=== PATIENT | male | born 1970 | race Caucasian/White ===

== ENCOUNTER 2017-11-12 12:11 | Emergency (ER) | payer MEDICAID ==
[~2017-11-12] VITALS: Ht 167.6 cm; Wt 65.7 kg
[~2017-11-12 12:11] MED LIST: AMLO5TAB16 PO; IBUP-1984 PO; LEVO750T46 PO; TAMS0.4C32 PO
[2017-11-12] MEDS ORDERED: normal saline 1000ML IV soln IVB ONE (13:35)
[2017-11-12] MEDS ORDERED: acetaminophen 325mg tablet PO ONE (13:35)
[2017-11-12] MEDS ORDERED: ondansetron/PF 4mg/2ml inj IV ONE (13:35)
[2017-11-12] MEDS ORDERED: morphine 2 MG/ML inj. syringe IV ONE (13:35)
[2017-11-12 13:46] LABS: BASOPHILS # (AUTO) 0.1 X10'3 (0-0.2); BASOPHILS % (AUTO) 0.3 % (0-1); EOSINOPHILS % (AUTO) 0.1 % (0-6); HEMATOCRIT 45.1 % (42.0-52.0); HEMOGLOBIN 15.6 g/dl (14.0-17.9); LYMPHOCYTES # (AUTO) 1.7 X10'3 (1.1-4.8); LYMPHOCYTES % (AUTO) 8.7 % (21-51); MEAN CORPUSCULAR HEMOGLOBIN 32.7 PG (27.0-31.0); MEAN CORPUSCULAR HGB CONC 34.7 % (33.0-36.5); MEAN CORPUSCULAR VOLUME 94.2 FL (78-98); MEAN PLATELET VOLUME 8.8 FL (7.4-10.4); MONOCYTES # (AUTO) 0.4 X10'3 (0-0.9); MONOCYTES % (AUTO) 2.3 % (2-12); NEUTROPHILS # (AUTO) 17.1 X10'3 (1.8-7.7); NEUTROPHILS % (AUTO) 88.6 % (42-75); PLATELET COUNT 221 X10'3 (140-440); RED BLOOD COUNT 4.79 X10'6 (4.70-6.10); WHITE BLOOD COUNT 19.3 X10'3 (4.5-11.0)
[2017-11-12 13:47] LABS: CLARITY,URINE CLOUDY (Clear); COLOR,URINE BROWN (Yellow); GLUCOSE, URINE NEGATIVE (Neg); KETONES,URINE TRACE mg/dl (Neg); LEUKOCYTE ESTERASE ,URINE TRACE (Neg); OCCULT BLOOD,URINE LARGE (Neg); PH,URINE 5.5 (4.8-8.0); PROTEIN,URINE 100 mg/dl (Neg)
[2017-11-12 13:52] LABS: UA COLLECTION TYPE CLN CATCH MIDSTREAM
[2017-11-12 13:55] LABS: AMORPHOUS URATES 1+; BACTERIA,URINE NONE SEEN /HPF (Neg); MUCUS STRANDS NONE SEEN /LPF (Neg); RBC,URINE TNTC /HPF (0-2); SQUAMOUS EPITHELIAL CELL,UR NONE SEEN /LPF (FEW)
[2017-11-12 14:01] LABS: ALANINE AMINOTRANSFERASE 27 U/L (12-78); ALBUMIN 4.1 G/DL (3.4-5.0); ALBUMIN/GLOBULIN RATIO 1.2 (1.1-1.5); ALKALINE PHOSPHATASE 107 IU/L (46-116); ANION GAP 9 (8-16); ASPARTATE AMINO TRANSFERASE 17 U/L (10-37); BILIRUBIN,TOTAL 0.4 MG/DL (0.1-1.0); BLOOD UREA NITROGEN 13 MG/DL (7-18); BUN/CREATININE RATIO 12.6 (5.4-32.0); CALCIUM 9.6 MG/DL (8.5-10.1); CHLORIDE 107 MMOL/L (99-107); CREATININE 1.03 MG/DL (0.60-1.10); GLUCOSE 126 MG/DL (70-104); POTASSIUM 4.7 MMOL/L (3.5-5.1); SODIUM 144 MMOL/L (135-145); TOTAL CARBON DIOXIDE 28.2 MMOL/L (24-32); TOTAL PROTEIN 7.5 G/DL (6.4-8.2); eGFR 77 ML/MIN
[2017-11-12 15:00] VITALS: BP 134/97
[2017-11-12] MEDS ORDERED: KETO10TA2 PO (15:25)
[2017-11-12] MEDS ORDERED: HYDR-569 PO (15:25)
== END 2017-11-12 15:43 | disposition home or self-care (01) ==
LOC: ER 12:11
DX: N20.0 Calculus of kidney (principal); I10 Essential (primary) hypertension; F17.200 Nicotine dependence, unspecified, uncomplicated; F12.10 Cannabis abuse, uncomplicated; Z98.890 Other specified postprocedural states; Z88.0 Allergy status to penicillin; Z88.8 Allergy status to other drugs, medicaments and biological substances; Z79.899 Other long term (current) drug therapy; Z87.442 Personal history of urinary calculi
CPT/HCPCS: 36415; 80053; 81001; 85025; 87088; 96361; 96374; 96375; 99284; J2270; J2405

== ENCOUNTER 2019-03-15 10:24 | Emergency (ER) | payer MEDICAID, MEDICARE ==
[~2019-03-15] VITALS: Ht 165.1 cm; Wt 60.2 kg
[~2019-03-15 10:24] MED LIST changes: +HYDR-4383 PO; +KETO10TA2 PO
[2019-03-15 11:52] LABS: BASOPHILS # (AUTO) 0.1 X10'3 (0-0.2); BASOPHILS % (AUTO) 0.4 % (0-1); EOSINOPHILS % (AUTO) 0.1 % (0-6); HEMATOCRIT 51.9 % (42.0-52.0); HEMOGLOBIN 17.6 g/dl (14.0-17.9); LYMPHOCYTES # (AUTO) 1.1 X10'3 (1.1-4.8); LYMPHOCYTES % (AUTO) 5.7 % (21-51); MEAN CORPUSCULAR HEMOGLOBIN 32.4 PG (27.0-31.0); MEAN CORPUSCULAR HGB CONC 33.9 g/dL (33.0-36.5); MEAN CORPUSCULAR VOLUME 95.5 FL (78-98); MONOCYTES # (AUTO) 0.4 X10'3 (0-0.9); MONOCYTES % (AUTO) 1.9 % (2-12); NEUTROPHILS # (AUTO) 17.5 X10'3 (1.8-7.7); NEUTROPHILS % (AUTO) 91.9 % (42-75); PLATELET COUNT 309 X10'3 (140-440); RED BLOOD COUNT 5.43 X10'6 (4.70-6.10); RED CELL DISTRIBUTION WIDTH 12.6 % (11.5-14.5)
[2019-03-15 12:05] LABS: ALANINE AMINOTRANSFERASE 22 U/L (12-78); ALBUMIN 4.7 G/DL (3.4-5.0); ALBUMIN/GLOBULIN RATIO 1.4 (1.1-1.5); ALKALINE PHOSPHATASE 117 IU/L (46-116); ANION GAP 10 (8-16); ASPARTATE AMINO TRANSFERASE 11 U/L (10-37); BILIRUBIN,TOTAL 0.6 MG/DL (0.1-1.0); BLOOD UREA NITROGEN 17 MG/DL (7-18); BUN/CREATININE RATIO 14.2 (5.4-32.0); CALCIUM 9.7 MG/DL (8.5-10.1); CHLORIDE 102 MMOL/L (99-107); GLUCOSE 152 MG/DL (70-104); POTASSIUM 4.2 MMOL/L (3.5-5.1); SODIUM 137 MMOL/L (135-145); TOTAL CARBON DIOXIDE 25.3 MMOL/L (24-32); eGFR 64 ML/MIN
[2019-03-15] MEDS ORDERED: normal saline 1000ML IV soln IVB ONE (13:00)
[2019-03-15] MEDS ORDERED: ondansetron/PF 4mg/2ml inj IV ONE (13:00)
[2019-03-15] MEDS ORDERED: morphine 4 MG/ML inj SYRINge IV PRN (13:00)
[2019-03-15 13:05] LABS: PLATELET ESTIMATE NORMAL; TOTAL CELLS COUNTED 100; TOXIC GRANULATION 1+
[2019-03-15 13:07] LABS: CLARITY,URINE CLOUDY (Clear); COLOR,URINE YELLOW (Yellow); GLUCOSE, URINE NEGATIVE (Neg); KETONES,URINE 15 mg/dl (Neg); LEUKOCYTE ESTERASE ,URINE TRACE (Neg); NITRITES, URINE NEGATIVE (Neg); OCCULT BLOOD,URINE LARGE (Neg); PH,URINE 5.5 (4.8-8.0); PROTEIN,URINE 30 mg/dl (Neg); UROBILINOGEN,URINE 0.2 E.U/dL (0.2-1.0)
[2019-03-15 13:08] LABS: UA COLLECTION TYPE CLN CATCH MIDSTREAM
[2019-03-15 13:13] LABS: SQUAMOUS EPITHELIAL CELL,UR FEW /LPF (FEW)
[2019-03-15 13:14] LABS: MUCUS STRANDS MANY /LPF (Neg); RBC,URINE 50-100 /HPF (0-2)
[2019-03-15 13:15] LABS: BACTERIA,URINE FEW /HPF (Neg); CAL OXALATE CRYSTALS 1+ /HPF (NEGATIVE)
[2019-03-15 13:16] LABS: AMORPHOUS URATES 2+
[2019-03-15] MEDS ORDERED: ketorolac trometh. 30mg/ml inj. IV ONE (14:25)
[2019-03-15] MEDS ORDERED: CefTRIAXone/D5W-Rocephin 1gm 50 ML IV ONE (14:25)
[2019-03-15] MEDS ORDERED: SULF1TAB49 PO (14:29)
[2019-03-15] MEDS ORDERED: ONDA4TAB6 PO (14:29)
[2019-03-15] MEDS ORDERED: HYDR-3965 PO (14:29)
[2019-03-15 16:11] VITALS: BP 132/80
== END 2019-03-15 16:39 | disposition home or self-care (01) ==
LOC: ER 10:24
DX: N39.0 Urinary tract infection, site not specified (principal); N23 Unspecified renal colic; I10 Essential (primary) hypertension; F12.90 Cannabis use, unspecified, uncomplicated; Z98.890 Other specified postprocedural states; Z88.0 Allergy status to penicillin; Z87.442 Personal history of urinary calculi; Z88.8 Allergy status to other drugs, medicaments and biological substances; Z79.899 Other long term (current) drug therapy
CPT/HCPCS: 36415; 74176; 80053; 81001; 85025; 85610; 87088; 96365; 96375; 99284; J0696; J1885; J2270; J2405; J7030

== ENCOUNTER 2021-05-05 11:55 | Day surgery (SDC) | payer MEDICARE ==
[2021-04-30 09:32] LABS: BASOPHILS # (AUTO) 0.1 X10'3 (0-0.2); EOSINOPHILS # (AUTO) 0.3 X10'3 (0-0.9); EOSINOPHILS % (AUTO) 2.5 % (0-6); HEMATOCRIT 45.8 % (42.0-52.0); HEMOGLOBIN 15.5 g/dl (14.0-17.9); LYMPHOCYTES # (AUTO) 2.4 X10'3 (1.1-4.8); LYMPHOCYTES % (AUTO) 20.7 % (21-51); MEAN CORPUSCULAR HEMOGLOBIN 30.7 PG (27.0-31.0); MEAN CORPUSCULAR HGB CONC 33.8 g/dL (33.0-36.5); MEAN CORPUSCULAR VOLUME 91.1 FL (78-98); MEAN PLATELET VOLUME 8.9 FL (7.4-10.4); MONOCYTES # (AUTO) 0.7 X10'3 (0-0.9); MONOCYTES % (AUTO) 5.7 % (2-12); NEUTROPHILS # (AUTO) 8.1 X10'3 (1.8-7.7); NEUTROPHILS % (AUTO) 70.1 % (42-75); PLATELET COUNT 215 X10'3 (140-440); RED BLOOD COUNT 5.03 X10'6 (4.70-6.10); RED CELL DISTRIBUTION WIDTH 13.4 % (11.5-14.5); WHITE BLOOD COUNT 11.6 X10'3 (4.5-11.0)
[2021-04-30 09:50] LABS: ALBUMIN 3.8 G/DL (3.4-5.0); ANION GAP 10 (8-16); BLOOD UREA NITROGEN 10 MG/DL (7-18); BUN/CREATININE RATIO 8.9 (5.4-32.0); CALCIUM 8.4 MG/DL (8.5-10.1); CHLORIDE 109 MMOL/L (99-107); CREATININE 1.12 MG/DL (0.60-1.10); GLUCOSE 91 MG/DL (70-104); POTASSIUM 3.2 MMOL/L (3.5-5.1); SODIUM 147 MMOL/L (135-145); TOTAL CARBON DIOXIDE 28.3 MMOL/L (24-32); eGFR 69 ML/MIN
[2021-04-30 09:51] LABS: PARTIAL THROMBOPLASTIN TIME 27 SECONDS (22-32)
[~2021-05-05] VITALS: Ht 167.6 cm; Wt 67.2 kg
[2021-05-05] VITALS (11 sets, daily range): BP systolic 158–185; BP diastolic 63–99
[~2021-05-05 11:55] MED LIST changes: +ONDA4TAB6 PO
[2021-05-05] MEDS ORDERED: normal saline 1,000 ML IV SCH (12:15)
[2021-05-05] MEDS ORDERED: LORazepam 0.5 MG tablet PO PRN (12:15)
[2021-05-05] MEDS ORDERED: diphenhydrAMINE 25mg capsule PO PRN (12:15)
[2021-05-05] MEDS ORDERED: fentaNYL/PF 50MCG/1 ML 2ML syringe ONE ×2 (14:23→15:12)
[2021-05-05] MEDS ORDERED: iohexol 350MG/ML 100ml bottle IV ONE ×2 (14:23→15:12)
[2021-05-05] MEDS ORDERED: midazolam 1 mg/ML 2ml injection ONE ×2 (14:23→15:01)
[2021-05-05] MEDS ORDERED: LIDOcaine 1% (10mg/ml)w/preservative injection 20ml MDV ONE (14:23)
[2021-05-05] MEDS ORDERED: heparin 1,000 UNITS/NS 500ml 500 ML ONE (14:24)
[2021-05-05] MEDS ORDERED: ROSU20TA31 PO (14:36)
[2021-05-05] MEDS ORDERED: LISI40TA13 PO (14:36)
[2021-05-05] MEDS ORDERED: TERA2CAP4 PO (14:36)
[2021-05-05] MEDS ORDERED: PANT20TA18 PO (14:36)
[2021-05-05] MEDS ORDERED: METO-395 PO (14:36)
[2021-05-05] MEDS ORDERED: ALBU18HF2 (14:36)
[2021-05-05] MEDS ORDERED: NITR0.4T48 SL (14:36)
[2021-05-05] MEDS ORDERED: ASPI-611 PO (14:37)
[2021-05-05] MEDS ORDERED: nitroGLYCERIN-Tridil 50MG/D5W 250 ML IV ONE (14:37)
[2021-05-05] MEDS ORDERED: verapamil 2.5 mg/ml inj IV ONE (14:37)
[2021-05-05] MEDS ORDERED: heparin 1,000unit/ml 10ml vial 10 ML ONE (14:37)
[2021-05-05] MEDS ORDERED: proCHLORperazine 10 MG/2 ml inj IV PRN ×2 (16:00→16:25)
[2021-05-05] MEDS ORDERED: HYDROcodone/acetaminophen 5mg/325mg tablet PO PRN ×2 (16:00→16:25)
[2021-05-05] MEDS ORDERED: HYDROcodone/acetaminophen 10/325mg tab PO PRN ×2 (16:00→16:25)
[2021-05-05] MEDS ORDERED: OXAZEpam 15mg capsule PO PRN (16:00)
[2021-05-05] MEDS ORDERED: ondansetron/PF 4mg/2ml inj IV PRN ×2 (16:00→16:20)
== END 2021-05-05 18:55 | disposition home or self-care (01) ==
LOC: SSTAY O 11:55
PROVIDERS: ATTEND Internal Medicine Interventional Cardiology
DX: R94.39 Abnormal result of other cardiovascular function study (principal); R07.89 Other chest pain; I25.10 Atherosclerotic heart disease of native coronary artery without angina pectoris; I10 Essential (primary) hypertension; I05.8 Other rheumatic mitral valve diseases; E78.5 Hyperlipidemia, unspecified; Z79.01 Long term (current) use of anticoagulants; Z79.899 Other long term (current) drug therapy; Z79.82 Long term (current) use of aspirin; Z88.8 Allergy status to other drugs, medicaments and biological substances; Z88.0 Allergy status to penicillin; F17.210 Nicotine dependence, cigarettes, uncomplicated
CPT/HCPCS: 36415; 80048; 85025; 85610; 85730; 93005; 93458; 99152; 99153; C1751; C1760; C1769; C1894; J1644; J2001; J2250; J3010; J7030; Q0163; Q9967; A4620; J3490

== ENCOUNTER 2022-07-12 11:14 | Inpatient (IN) | payer MEDICARE ==
[~2022-07-12] VITALS: Ht 167.6 cm; Wt 61.0 kg
[~2022-07-12 11:14] MED LIST changes: +ALBU18HF2 PO; -AMLO5TAB16 PO; +ASPI-611 PO; +ATOR40TA71 PO; -HYDR-4383 PO; -IBUP-1984 PO; -KETO10TA2 PO; -LEVO750T46 PO; +LISI40TA13 PO; +METO-395 PO; -ONDA4TAB6 PO; +PANT20TA18 PO; -TAMS0.4C32 PO; +TERA2CAP4 PO
[2022-07-12 12:36] LABS: BASOPHILS # (AUTO) 0.1 X10'3 (0-0.2); BASOPHILS % (AUTO) 0.7 % (0-1); EOSINOPHILS % (AUTO) 0.1 % (0-6); HEMATOCRIT 43.5 % (42.0-52.0); HEMOGLOBIN 14.4 g/dl (14.0-17.9); LYMPHOCYTES # (AUTO) 1.6 X10'3 (1.1-4.8); LYMPHOCYTES % (AUTO) 8.7 % (21-51); MEAN CORPUSCULAR HEMOGLOBIN 30.6 PG (27.0-31.0); MEAN CORPUSCULAR HGB CONC 33.2 g/dL (33.0-36.5); MEAN CORPUSCULAR VOLUME 92.3 FL (78-98); MEAN PLATELET VOLUME 7.2 FL (7.4-10.4); MONOCYTES # (AUTO) 1.5 X10'3 (0-0.9); MONOCYTES % (AUTO) 7.9 % (2-12); NEUTROPHILS # (AUTO) 15.6 X10'3 (1.8-7.7); NEUTROPHILS % (AUTO) 82.6 % (42-75); PLATELET COUNT 451 X10'3 (140-440); RED BLOOD COUNT 4.71 X10'6 (4.70-6.10); WHITE BLOOD COUNT 18.9 X10'3 (4.5-11.0)
[2022-07-12 12:45] LABS: ALANINE AMINOTRANSFERASE 32 U/L (12-78); ALBUMIN 3.5 G/DL (3.4-5.0); ALBUMIN/GLOBULIN RATIO 0.8 (1.1-1.5); ALKALINE PHOSPHATASE 172 IU/L (46-116); ANION GAP 15 (8-16); ASPARTATE AMINO TRANSFERASE 18 U/L (10-37); BILIRUBIN,TOTAL 0.6 MG/DL (0.1-1.0); BLOOD UREA NITROGEN 10 MG/DL (7-18); BUN/CREATININE RATIO 12.3 (5.4-32.0); CHLORIDE 101 MMOL/L (99-107); CREATININE 0.81 MG/DL (0.60-1.10); GLUCOSE 115 MG/DL (70-104); POTASSIUM 3.4 MMOL/L (3.5-5.1); SODIUM 140 MMOL/L (135-145); TOTAL CARBON DIOXIDE 23.6 MMOL/L (24-32); eGFR > 90 ML/MIN
--- NOTE | 2022-07-12 14:27 | NUR ---
pt amb with walker to triage for reevaluation, still no output in colostomy, no air in bag, redressed wound as dressing was falling off, minimal amount of discharge from wound, pt tolerated well, waiting for ER bed
[2022-07-12] MEDS ORDERED: vancomycin 1,000mg inj IV ONE (17:30)
[2022-07-12] MEDS ORDERED: vancomycin/NS 1 GM ADD-VANTAGE 250 ML X 1 DOSE IV ONE (17:35)
[2022-07-12] MEDS ORDERED: iohexol 300mg/ml 100ml inj. ONE (17:37)
[2022-07-12] MEDS ORDERED: CefTRIAXone/D5W-Rocephin 1gm 50 ML IV ONE (19:00)
[2022-07-12] MEDS ORDERED: morphine 4 MG/ML inj SYRINge IV ONE (19:00)
[2022-07-12] MEDS ORDERED: ringers solution, lactated 500ml IV solution IV ONE (19:00)
[2022-07-12 20:03] LABS: CLARITY,URINE CLEAR (Clear); COLOR,URINE YELLOW (Yellow); GLUCOSE, URINE NEGATIVE (Neg); KETONES,URINE 40 mg/dl (Neg); LEUKOCYTE ESTERASE ,URINE NEGATIVE (Neg); NITRITES, URINE NEGATIVE (Neg); OCCULT BLOOD,URINE MODERATE (Neg); PH,URINE 6.5 (4.8-8.0); PROTEIN,URINE TRACE mg/dl (Neg); UROBILINOGEN,URINE 0.2 E.U/dL (0.2-1.0)
[2022-07-12 20:05] LABS: UA COLLECTION TYPE URINAL
[2022-07-12 20:11] LABS: HYALINE CASTS 0-3 /LPF (NEGATIVE); MUCUS STRANDS MANY /LPF (Neg); SQUAMOUS EPITHELIAL CELL,UR FEW /LPF (FEW)
[2022-07-12 20:14] LABS: BACTERIA,URINE FEW /HPF (Neg); CAL OXALATE CRYSTALS 4+ /HPF (NEGATIVE)
[2022-07-12 20:15] LABS: RBC,URINE TNTC /HPF (0-2)
[2022-07-12] MEDS ORDERED: temazepam 15mg capsule PO PRN (21:00)
[2022-07-12] MEDS ORDERED: acetaminophen 325mg tablet PO PRN ×2 (22:50)
[2022-07-12] MEDS ORDERED: bisacodyl 10mg suppository rectal RC PRN (22:50)
[2022-07-12] MEDS ORDERED: potassium Cl 20 mEq SR tablet PO PRN (22:50)
[2022-07-12] MEDS ORDERED: magnesium hydroxide 30ml (MOM) UD suspension PO PRN (22:50)
[2022-07-12] MEDS ORDERED: HYDROcodone/acetaminophen 5mg/325mg tablet PO PRN (22:50)
[2022-07-12] MEDS ORDERED: HYDROmorphone inj. 0.5 MG/0.5 ML DISP.SYRIN IV PRN (22:50)
[2022-07-12] MEDS ORDERED: diphenhydrAMINE 25mg capsule PO PRN (22:50)
[2022-07-12] MEDS ORDERED: acetaminophen 650mg rectal suppository RC PRN (22:50)
[2022-07-12] MEDS ORDERED: magnesium 4gm in 100ml NS 100 ML IV PRN (22:50)
[2022-07-12] MEDS ORDERED: diphenhydrAMINE 50 mg/ml inj IV PRN (22:50)
[2022-07-12] MEDS ORDERED: magnesium 2GM in 50ml NS 50 ML IV PRN (22:50)
[2022-07-12] MEDS ORDERED: vancomycin/NS 1 GM ADD-VANTAGE 250 ML IV SCH (22:50)
[2022-07-12] MEDS ORDERED: morphine 2 MG/ML inj. syringe IV PRN (22:50)
[2022-07-12] MEDS ORDERED: magnesium Cl slow-release 64mg tablet PO PRN (22:50)
[2022-07-12] MEDS ORDERED: mag hydrox/Alum hydrox/simeth 30ml oral suspension PO PRN (22:50)
[2022-07-12] MEDS ORDERED: METO25TA6 PO (23:33)
[2022-07-12] MEDS ORDERED: SULF1TAB45 PO (23:33)
[2022-07-12] MEDS ORDERED: LISI2.5T14 PO (23:33)
[2022-07-12 23:36] LABS: APTT 29 SECONDS (22-32)
[2022-07-12] MEDS: morphine 2 MG/ML inj. syringe IV PRN (23:36)
[2022-07-12] MEDS ORDERED: HYDR-3972 PO (23:47)
[2022-07-12] MEDS: dextrose 5%-1/2 normal saline 1,000 ML IV SCH (23:48)
[2022-07-12 23:50] LABS: MAGNESIUM 1.4 MG/DL (1.5-2.4); PHOSPHORUS 3.2 MG/DL (2.3-4.5)
[2022-07-12 23:55] LABS: POTASSIUM 2.9 MMOL/L (3.5-5.1)
[2022-07-13] VITALS (22 sets, daily range): BP systolic 118–154; BP diastolic 66–84
[2022-07-13] MEDS: potassium Cl 40MEQ/1/2NS 520ml 520 ML IV PRN ×2 (01:58→06:12)
[2022-07-13] MEDS: ondansetron/PF 4mg/2ml inj IV PRN (02:08)
[2022-07-13 06:51] LABS: BASOPHILS # (AUTO) 0.1 X10'3 (0-0.2); BASOPHILS % (AUTO) 0.6 % (0-1); EOSINOPHILS # (AUTO) 0.2 X10'3 (0-0.9); EOSINOPHILS % (AUTO) 1.1 % (0-6); HEMATOCRIT 37.1 % (42.0-52.0); HEMOGLOBIN 12.5 g/dl (14.0-17.9); LYMPHOCYTES # (AUTO) 1.1 X10'3 (1.1-4.8); LYMPHOCYTES % (AUTO) 7.2 % (21-51); MEAN CORPUSCULAR HEMOGLOBIN 30.9 PG (27.0-31.0); MEAN CORPUSCULAR HGB CONC 33.7 g/dL (33.0-36.5); MEAN CORPUSCULAR VOLUME 91.6 FL (78-98); MEAN PLATELET VOLUME 7.2 FL (7.4-10.4); MONOCYTES # (AUTO) 1.2 X10'3 (0-0.9); MONOCYTES % (AUTO) 7.6 % (2-12); NEUTROPHILS % (AUTO) 83.5 % (42-75); PLATELET COUNT 357 X10'3 (140-440); RED BLOOD COUNT 4.05 X10'6 (4.70-6.10); RED CELL DISTRIBUTION WIDTH 15.1 % (11.5-14.5); WHITE BLOOD COUNT 15.6 X10'3 (4.5-11.0)
[2022-07-13 07:02] LABS: ALANINE AMINOTRANSFERASE 21 U/L (12-78); ALBUMIN 2.7 G/DL (3.4-5.0); ALBUMIN/GLOBULIN RATIO 0.8 (1.1-1.5); ALKALINE PHOSPHATASE 139 IU/L (46-116); ANION GAP 9 (8-16); ASPARTATE AMINO TRANSFERASE 17 U/L (10-37); BILIRUBIN,TOTAL 0.5 MG/DL (0.1-1.0); BLOOD UREA NITROGEN 8 MG/DL (7-18); BUN/CREATININE RATIO 11.1 (5.4-32.0); CALCIUM 8.9 MG/DL (8.5-10.1); CHLORIDE 103 MMOL/L (99-107); CREATININE 0.72 MG/DL (0.60-1.10); GLUCOSE 110 MG/DL (70-104); MAGNESIUM 1.5 MG/DL (1.5-2.4); POTASSIUM 3.4 MMOL/L (3.5-5.1); SODIUM 137 MMOL/L (135-145); TOTAL CARBON DIOXIDE 24.9 MMOL/L (24-32); TOTAL PROTEIN 6.3 G/DL (6.4-8.2); eGFR > 90 ML/MIN
--- NOTE | 2022-07-13 07:30 | NUR ---
Midline abd wound has zamora foul smelling drainage that is comming from the R side of the wound. Area with cleaned and new dressing of 4x4s, abd pad, and paper tape applied.
[2022-07-13] MEDS: nicotine 21mg patch - 24 hr TD SCH (07:47)
[2022-07-13] MEDS: docusate sod 100mg capsule PO SCH ×2 (07:48→19:42)
[2022-07-13] MEDS: pantoprazole 40MG/NS 100ML BAG 100 ML IV SCH (07:48)
[2022-07-13] MEDS: morphine 2 MG/ML inj. syringe IV PRN ×2 (09:00→22:02)
[2022-07-13] MEDS: piperacillin/tazo 4.5gm/100ml 100 ML IV SCH ×2 (09:01→22:01)
[2022-07-13] MEDS: K and/or MAG REPLACEMENT MC SCH ×2 (09:41→20:00)
[2022-07-13] MEDS: dextrose 5%-1/2 normal saline 1,000 ML IV SCH ×2 (10:00→19:40)
[2022-07-13] MEDS: vancomycin/NS 1 GM ADD-VANTAGE 250 ML IV SCH ×2 (11:10→19:41)
--- NOTE | 2022-07-13 12:57 | NUR ---
Report given to LUIS ARMANDO Gonzalez on the Surgical floor. OR staff here to transport pt.
[2022-07-13] MEDS ORDERED: proCHLORperazine 10 MG/2 ml inj IV PRN (13:15)
[2022-07-13] MEDS ORDERED: morphine 4 MG/ML inj SYRINge IV PRN (13:15)
[2022-07-13] MEDS ORDERED: ondansetron/PF 4mg/2ml inj IV PRN (13:15)
[2022-07-13] MEDS ORDERED: morphine 2 MG/ML inj. syringe IV PRN (13:15)
[2022-07-13] MEDS ORDERED: meperidine/PF 25mg/ml syringe IV PRN ×3 (13:15)
[2022-07-13] MEDS ORDERED: ringers solution, lacted 1,000 ML IV SCH (13:15)
[2022-07-13] MEDS ORDERED: midazolam 1 mg/ML 2ml injection ONE (13:34)
[2022-07-13] MEDS ORDERED: ketamine 50mg/5ml syringe ONE (13:34)
[2022-07-13] MEDS ORDERED: fentaNYL/PF 50MCG/1 ML 2ML syringe ONE ×2 (13:34→13:41)
[2022-07-13] MEDS ORDERED: propofol inj 20 ML IV ONE (13:58)
--- NOTE | 2022-07-13 14:02 | NUR ---
Received from OR via [facility] BED , accompanied by Anesthesiologist DR MARINA and report given by Anesthesiolgist. PT PRESENTS WITH PIV 20G LEFT AC, ABD DRESSING CDI, VSS. Addendum: 07/13/22 at 1419 by Bonita Mc RN, RN Amended: Links added.
[2022-07-13] MEDS ORDERED: naloxone 0.4 mg/ml inj IV PRN (14:05)
--- NOTE | 2022-07-13 15:42 | NUR ---
Report called to receiving nurse ALICE DURÁN. Transferred via [facility] BY BASIA DURÁN TO ROOM 340. BED IN LOW LOCKED POSITION WITH CALL LIGHT IN REACH. Special Issues communicated to receiving nurse. Addendum: 07/13/22 at 1601 by Bonita Mc RN RN Amended: Links added.
--- NOTE | 2022-07-13 18:38 | NUR ---
Problems reprioritized. Patient report given, questions answered & plan of care reviewed with Rola DURÁN.
[2022-07-13] MEDS: ondansetron 4mg rapidly disintigrating tab PO PRN (19:41)
[2022-07-13] MEDS: HYDROcodone/acetaminophen 10/325mg tab PO PRN (19:41)
[2022-07-14 02:00] VITALS: BP 124/67
[2022-07-14] MEDS: dextrose 5%-1/2 normal saline 1,000 ML IV SCH ×3 (04:50→21:39)
[2022-07-14] MEDS: ondansetron 4mg rapidly disintigrating tab PO PRN (05:54)
[2022-07-14] MEDS: HYDROcodone/acetaminophen 10/325mg tab PO PRN ×4 (05:55→21:40)
[2022-07-14 05:57] VITALS: BP 144/77
[2022-07-14 06:00] VITALS: BP 156/80
--- NOTE | 2022-07-14 06:05 | NUR ---
Problems reprioritized. Patient report given, questions answered & plan of care reviewed with LUIS ARMANDO JENKINS.
[2022-07-14 07:25] LABS: BASOPHILS # (AUTO) 0.1 X10'3 (0-0.2); BASOPHILS % (AUTO) 0.7 % (0-1); EOSINOPHILS # (AUTO) 0.3 X10'3 (0-0.9); EOSINOPHILS % (AUTO) 2.5 % (0-6); HEMATOCRIT 37.5 % (42.0-52.0); HEMOGLOBIN 12.2 g/dl (14.0-17.9); LYMPHOCYTES # (AUTO) 1.6 X10'3 (1.1-4.8); LYMPHOCYTES % (AUTO) 14.1 % (21-51); MEAN CORPUSCULAR HGB CONC 32.7 g/dL (33.0-36.5); MEAN PLATELET VOLUME 7.2 FL (7.4-10.4); MONOCYTES # (AUTO) 1.1 X10'3 (0-0.9); MONOCYTES % (AUTO) 9.8 % (2-12); NEUTROPHILS # (AUTO) 8.3 X10'3 (1.8-7.7); NEUTROPHILS % (AUTO) 72.9 % (42-75); PLATELET COUNT 338 X10'3 (140-440); RED BLOOD COUNT 4.08 X10'6 (4.70-6.10); RED CELL DISTRIBUTION WIDTH 14.9 % (11.5-14.5); WHITE BLOOD COUNT 11.4 X10'3 (4.5-11.0)
[2022-07-14] MEDS ORDERED: VANCOMYCIN LEVEL IV ONE (07:30)
[2022-07-14 07:35] LABS: ALANINE AMINOTRANSFERASE 30 U/L (12-78); ALBUMIN 2.5 G/DL (3.4-5.0); ALBUMIN/GLOBULIN RATIO 0.7 (1.1-1.5); ALKALINE PHOSPHATASE 124 IU/L (46-116); ANION GAP 7 (8-16); ASPARTATE AMINO TRANSFERASE 30 U/L (10-37); BILIRUBIN,TOTAL 0.4 MG/DL (0.1-1.0); BLOOD UREA NITROGEN 8 MG/DL (7-18); BUN/CREATININE RATIO 9.6 (5.4-32.0); CALCIUM 8.6 MG/DL (8.5-10.1); CHLORIDE 103 MMOL/L (99-107); CREATININE 0.83 MG/DL (0.60-1.10); GLUCOSE 105 MG/DL (70-104); POTASSIUM 3.1 MMOL/L (3.5-5.1); SODIUM 137 MMOL/L (135-145); TOTAL CARBON DIOXIDE 27.2 MMOL/L (24-32); eGFR > 90 ML/MIN
[2022-07-14 07:36] LABS: MAGNESIUM 1.5 MG/DL (1.5-2.4); VANCOMYCIN,TROUGH 16.4 UG/ML (6.0-14.0)
[2022-07-14] MEDS: nicotine 21mg patch - 24 hr TD SCH ×3 (08:00→08:40)
[2022-07-14] MEDS: docusate sod 100mg capsule PO SCH ×2 (08:34→21:39)
[2022-07-14] MEDS: vancomycin/NS 1 GM ADD-VANTAGE 250 ML IV SCH ×2 (08:34→21:41)
[2022-07-14] MEDS: pantoprazole 40MG/NS 100ML BAG 100 ML IV SCH (08:34)
[2022-07-14 10:00] VITALS: BP 139/79
[2022-07-14] MEDS: piperacillin/tazo 4.5gm/100ml 100 ML IV SCH ×2 (10:21→21:42)
--- NOTE | 2022-07-14 11:24 | NUR ---
Initial: Pt admit DX HTN, hypokalemia, and abdominal wall abscess s/p I&D this admit w/ hx colostomy and abdomen surgical site wound vac per EMR. Pending initial PO and colostomy output in EMR. Pt seen by RD at bedside for written/verbal high protein diet ed w/ RD contact information provided. Pt reports good appetite, drinks premier protein 1-2/day at home, and is agreeable to strawberry Esa smoothie BIDBD for wound healing; MD notified. RD paged MD recommends MVI supplementation for wound healing if agreeable. Will monitor for PO trends and further nutrition intervention needs this admit. Rec: 1. continue regular diet per MD; encourage PO 2. strawberry Esa smoothie BIDBD for wound healing; pending MD verification in EMR 3. MVI supplementation for wound healing 4. bowel care per rx; monitor colostomy output 5. scaled wt this admit; subsequent weekly wts Addendum: 07/14/22 at [address] Amended: Links added.
[2022-07-14] MEDS: K and/or MAG REPLACEMENT MC SCH ×2 (12:07→20:00)
[2022-07-14] MEDS: potassium Cl 20 mEq SR tablet PO PRN ×2 (12:33→17:22)
[2022-07-14 18:00] VITALS: BP 153/82
--- NOTE | 2022-07-14 18:38 | NUR ---
Problems reprioritized. Patient report given, questions answered & plan of care reviewed with Janette Savage RN.
--- NOTE | 2022-07-14 18:40 | NUR ---
Patient in room [facility]. I have received report from ALICE DURÁN and had the opportunity to ask questions and assume patient care.
[2022-07-14] MEDS: JUVEN Smoothie Arginine/Glut./Ca2+Bmb (Juven 19.3pkt) 240ml cup PO SCH (19:00)
[2022-07-14 22:00] VITALS: BP 152/86
[2022-07-15] MEDS: HYDROcodone/acetaminophen 10/325mg tab PO PRN ×3 (01:46→13:28)
[2022-07-15 05:54] LABS: BASOPHILS # (AUTO) 0.1 X10'3 (0-0.2); BASOPHILS % (AUTO) 1.1 % (0-1); EOSINOPHILS # (AUTO) 0.3 X10'3 (0-0.9); EOSINOPHILS % (AUTO) 2.9 % (0-6); HEMATOCRIT 37.8 % (42.0-52.0); HEMOGLOBIN 12.5 g/dl (14.0-17.9); LYMPHOCYTES # (AUTO) 2.2 X10'3 (1.1-4.8); LYMPHOCYTES % (AUTO) 21.3 % (21-51); MEAN CORPUSCULAR HEMOGLOBIN 30.5 PG (27.0-31.0); MEAN CORPUSCULAR VOLUME 92.4 FL (78-98); MEAN PLATELET VOLUME 7.5 FL (7.4-10.4); MONOCYTES # (AUTO) 1.1 X10'3 (0-0.9); MONOCYTES % (AUTO) 10.7 % (2-12); NEUTROPHILS # (AUTO) 6.6 X10'3 (1.8-7.7); PLATELET COUNT 361 X10'3 (140-440); RED BLOOD COUNT 4.09 X10'6 (4.70-6.10); RED CELL DISTRIBUTION WIDTH 14.5 % (11.5-14.5); WHITE BLOOD COUNT 10.3 X10'3 (4.5-11.0)
[2022-07-15 06:00] VITALS: BP 144/80
[2022-07-15 06:05] LABS: ALANINE AMINOTRANSFERASE 37 U/L (12-78); ALBUMIN 2.4 G/DL (3.4-5.0); ALBUMIN/GLOBULIN RATIO 0.7 (1.1-1.5); ALKALINE PHOSPHATASE 110 IU/L (46-116); ANION GAP 10 (8-16); ASPARTATE AMINO TRANSFERASE 24 U/L (10-37); BILIRUBIN,TOTAL 0.3 MG/DL (0.1-1.0); BLOOD UREA NITROGEN 9 MG/DL (7-18); BUN/CREATININE RATIO 9.6 (5.4-32.0); CALCIUM 8.5 MG/DL (8.5-10.1); CHLORIDE 107 MMOL/L (99-107); CREATININE 0.94 MG/DL (0.60-1.10); GLUCOSE 101 MG/DL (70-104); MAGNESIUM 1.5 MG/DL (1.5-2.4); POTASSIUM 3.5 MMOL/L (3.5-5.1); SODIUM 143 MMOL/L (135-145); TOTAL CARBON DIOXIDE 26.3 MMOL/L (24-32); eGFR 84 ML/MIN
--- NOTE | 2022-07-15 06:30 | NUR ---
Patient in room [facility] 341. I have received report from Ayanna DURÁN and had the opportunity to ask questions and assume patient care.
--- NOTE | 2022-07-15 06:30 | NUR ---
Problems reprioritized. Patient report given, questions answered & plan of care reviewed with WENDY DURÁN.
[2022-07-15] MEDS: pantoprazole 40MG/NS 100ML BAG 100 ML IV SCH (07:36)
[2022-07-15] MEDS: docusate sod 100mg capsule PO SCH (07:37)
[2022-07-15] MEDS: vancomycin/NS 1 GM ADD-VANTAGE 250 ML IV SCH (07:52)
[2022-07-15] MEDS: K and/or MAG REPLACEMENT MC SCH (08:00)
[2022-07-15] MEDS: JUVEN Smoothie Arginine/Glut./Ca2+Bmb (Juven 19.3pkt) 240ml cup PO SCH ×2 (08:01→17:30)
--- NOTE | 2022-07-15 09:00 | NUR ---
Lab called to alert that abdominal abscess blood culture showed MRSA positive. MD notified.
--- NOTE | 2022-07-15 10:20 | NUR ---
Pt. educated on the importance of receiving insulin for diabetes. Pt. refused insulin this morning but was agreeable to recheck blood sugar at noon at 12:00 Addendum: 07/15/22 at 1348 by Terese Ziegler RN This note was on wrong patient please disregard.
[2022-07-15] MEDS: piperacillin/tazo 4.5gm/100ml 100 ML IV SCH (10:43)
[2022-07-15] MEDS: dextrose 5%-1/2 normal saline 1,000 ML IV SCH (10:50)
[2022-07-15 11:00] VITALS: BP 153/82
[2022-07-15] MEDS: ondansetron/PF 4mg/2ml inj IV PRN (11:03)
[2022-07-15] MEDS ORDERED: LINE600T11 PO (14:44)
[2022-07-15] MEDS ORDERED: HYDR-3972 PO (14:44)
--- NOTE | 2022-07-15 17:40 | NUR ---
IV dc, cannula intact at 1700. Pt. DC home with all personal belongings via wheelchair to private vehicle accompanied by family member and staff. DC instructions given, pt. verbalized understanding and had opportunity to ask questions.
[2022-07-16] MEDS ORDERED: pantoprazole 40mg Tablet.DR PO SCH (07:30)
== END 2022-07-15 16:50 | disposition home health service (06) | DRG 862 ==
LOC: ER 11:15 → ED HOLD 22:55 → SUR 3N 07-13 15:51
PROVIDERS: ADMIT Family Medicine; ATTEND Family Medicine
PROC: 0JD83ZZ Extraction of Abdomen Subcutaneous Tissue and Fascia, Percutaneous Approach (ICD-10-PCS; 2022-07-13)
PROC: 0W9F3ZZ Drainage of Abdominal Wall, Percutaneous Approach (ICD-10-PCS; principal; 2022-07-13 13:25)
DX: T81.41XA Infection following a procedure, superficial incisional surgical site, initial encounter (principal); A41.9 Sepsis, unspecified organism; L02.211 Cutaneous abscess of abdominal wall; N39.0 Urinary tract infection, site not specified; L03.311 Cellulitis of abdominal wall; E86.0 Dehydration; E78.5 Hyperlipidemia, unspecified; E83.42 Hypomagnesemia; E87.6 Hypokalemia; F12.10 Cannabis abuse, uncomplicated; I10 Essential (primary) hypertension; I73.9 Peripheral vascular disease, unspecified; K76.0 Fatty (change of) liver, not elsewhere classified; F17.200 Nicotine dependence, unspecified, uncomplicated; R82.4 Acetonuria; K76.89 Other specified diseases of liver; N40.0 Benign prostatic hyperplasia without lower urinary tract symptoms; Y83.8 Other surgical procedures as the cause of abnormal reaction of the patient, or of later complication, without mention of misadventure at the time of the procedure; R31.0 Gross hematuria; Z83.3 Family history of diabetes mellitus; Z87.442 Personal history of urinary calculi; Z90.49 Acquired absence of other specified parts of digestive tract; Z93.3 Colostomy status; Z88.0 Allergy status to penicillin; Z88.8 Allergy status to other drugs, medicaments and biological substances; Z82.49 Family history of ischemic heart disease and other diseases of the circulatory system; Z79.899 Other long term (current) drug therapy; Z79.82 Long term (current) use of aspirin; Z71.6 Tobacco abuse counseling; Y92.89 Other specified places as the place of occurrence of the external cause
CPT/HCPCS: 36415; 71045; 74177; 80053; 80202; 81001; 83605; 83735; 83880; 84100; 84132; 84145; 85025; 85610; 85730; 87040; 87070; 87075; 87077; 87088; 87186; 93005; 99285; A4618; A6253; A6266; A6449; A7000; C9113; G0378; J0696; J2250; J2270; J2405; J2543; J2704; J3010; J3370; J3480; J3490; J7030; J7042; J7120; J7121; Q9967

== ENCOUNTER 2022-07-30 14:30 | Emergency (ER) | payer MEDICARE ==
[~2022-07-30] VITALS: Ht 167.6 cm; Wt 59.0 kg
[~2022-07-30 14:30] MED LIST changes: +HYDR-3972 PO; +LINE600T11 PO; +LISI2.5T14 PO; -LISI40TA13 PO; -METO-395 PO; +METO25TA6 PO
[2022-07-30 15:31] LABS: BASOPHILS # (AUTO) 0.1 X10'3 (0-0.2); EOSINOPHILS % (AUTO) 0.2 % (0-6); HEMOGLOBIN 13.5 g/dl (14.0-17.9); LYMPHOCYTES # (AUTO) 1.8 X10'3 (1.1-4.8); LYMPHOCYTES % (AUTO) 16.9 % (21-51); MEAN CORPUSCULAR HEMOGLOBIN 30.6 PG (27.0-31.0); MEAN CORPUSCULAR HGB CONC 33.9 g/dL (33.0-36.5); MEAN CORPUSCULAR VOLUME 90.2 FL (78-98); MEAN PLATELET VOLUME 7.4 FL (7.4-10.4); MONOCYTES # (AUTO) 0.9 X10'3 (0-0.9); MONOCYTES % (AUTO) 8.6 % (2-12); NEUTROPHILS # (AUTO) 7.6 X10'3 (1.8-7.7); NEUTROPHILS % (AUTO) 73.3 % (42-75); PLATELET COUNT 211 X10'3 (140-440); RED BLOOD COUNT 4.43 X10'6 (4.70-6.10); RED CELL DISTRIBUTION WIDTH 14.8 % (11.5-14.5); WHITE BLOOD COUNT 10.4 X10'3 (4.5-11.0)
[2022-07-30 15:49] LABS: ALANINE AMINOTRANSFERASE 46 U/L (12-78); ALBUMIN 3.7 G/DL (3.4-5.0); ALKALINE PHOSPHATASE 113 IU/L (46-116); ANION GAP 14 (8-16); ASPARTATE AMINO TRANSFERASE 26 U/L (10-37); BILIRUBIN,TOTAL 0.5 MG/DL (0.1-1.0); BLOOD UREA NITROGEN 7 MG/DL (7-18); BUN/CREATININE RATIO 7.6 (5.4-32.0); CALCIUM 9.6 MG/DL (8.5-10.1); CHLORIDE 103 MMOL/L (99-107); CREATININE 0.92 MG/DL (0.60-1.10); GLUCOSE 117 MG/DL (70-104); LIPASE 99 U/L (73-393); SODIUM 146 MMOL/L (135-145); TOTAL CARBON DIOXIDE 28.9 MMOL/L (24-32); TOTAL PROTEIN 7.3 G/DL (6.4-8.2); eGFR 86 ML/MIN
[2022-07-30 15:51] LABS: POTASSIUM 2.9 MMOL/L (3.5-5.1)
--- NOTE | 2022-07-30 15:52 | NUR ---
Charge nurse made aware of critical lab value (K 2.9)
--- NOTE | 2022-07-30 21:30 | NUR ---
Clinical Registered Nurse agrees with Jacqueline Shearer LPN assessment
[2022-07-30 21:36] LABS: CLARITY,URINE SLIGHTLY CLOUDY (Clear); COLOR,URINE YELLOW (Yellow); GLUCOSE, URINE NEGATIVE (Neg); KETONES,URINE 15 mg/dl (Neg); LEUKOCYTE ESTERASE ,URINE NEGATIVE (Neg); NITRITES, URINE NEGATIVE (Neg); OCCULT BLOOD,URINE LARGE (Neg); PROTEIN,URINE TRACE mg/dl (Neg); UROBILINOGEN,URINE 0.2 E.U/dL (0.2-1.0)
[2022-07-30 21:45] LABS: UA COLLECTION TYPE VOIDED
[2022-07-30 21:46] LABS: AMORPHOUS PHOSPHATES 2+; BACTERIA,URINE 2+ /HPF (Neg); MUCUS STRANDS MODERATE /LPF (Neg); RBC,URINE 20-50 /HPF (0-2); SQUAMOUS EPITHELIAL CELL,UR FEW /LPF (FEW)
[2022-07-30] MEDS ORDERED: ondansetron/PF 4mg/2ml inj IV ONE (22:50)
[2022-07-30] MEDS ORDERED: morphine 4 MG/ML inj SYRINge IV ONE (22:50)
[2022-07-30] MEDS ORDERED: iohexol 300mg/ml 100ml inj. ONE (23:00)
[2022-07-31] MEDS ORDERED: ringers solution, lacted 1,000 ML IV ONE (00:40)
[2022-07-31] MEDS ORDERED: potassium Cl 10 mEq/100mL bag IV ONE (02:45)
[2022-07-31] MEDS: ondansetron/PF 4mg/2ml inj IV ONE ×2 (02:45→03:36)
[2022-07-31] MEDS ORDERED: POTASSIUM BICARB 20meq eff tab 20 MEQ TABLET.EFF PO ONE (02:45)
[2022-07-31] MEDS ORDERED: ondansetron/PF 4mg/2ml inj IV ONE (03:40)
[2022-07-31 05:34] VITALS: BP 170/92
== END 2022-07-31 06:10 | disposition home or self-care (01) ==
LOC: ER 14:30
DX: R10.84 Generalized abdominal pain (principal); E87.6 Hypokalemia; R11.2 Nausea with vomiting, unspecified; E78.00 Pure hypercholesterolemia, unspecified; I10 Essential (primary) hypertension; E11.9 Type 2 diabetes mellitus without complications; F12.90 Cannabis use, unspecified, uncomplicated; Z87.442 Personal history of urinary calculi; Z98.890 Other specified postprocedural states; Z88.0 Allergy status to penicillin; Z88.8 Allergy status to other drugs, medicaments and biological substances; Z79.82 Long term (current) use of aspirin; Z79.899 Other long term (current) drug therapy
CPT/HCPCS: 36415; 74177; 80053; 81001; 83690; 85025; 87088; 96361; 96374; 96375; 96376; 99285; J2270; J2405; J3480; J7030; J7120; Q9967

== ENCOUNTER 2022-10-08 08:48 | Outpatient (CLI) | payer MEDICARE ==
[~2022-10-08] VITALS: Ht 167.6 cm; Wt 63.5 kg
[~2022-10-08 08:48] MED LIST changes: -LINE600T11 PO
[2022-10-08] MEDS ORDERED: ONDA-103 PO (09:24)
[2022-10-08] MEDS ORDERED: LACT1CAP65 PO (09:24)
[2022-10-08] MEDS ORDERED: ESCI-8 PO (09:24)
[2022-10-08] MEDS ORDERED: HYDR-3964 PO (09:25)
[2022-10-08 10:23] LABS: BASOPHILS # (AUTO) 0.1 X10'3 (0-0.2); BASOPHILS % (AUTO) 0.6 % (0-1); EOSINOPHILS # (AUTO) 0.2 X10'3 (0-0.9); EOSINOPHILS % (AUTO) 2.1 % (0-6); LYMPHOCYTES # (AUTO) 1.3 X10'3 (1.1-4.8); LYMPHOCYTES % (AUTO) 14.1 % (21-51); MONOCYTES % (AUTO) 10.8 % (2-12); NEUTROPHILS # (AUTO) 6.8 X10'3 (1.8-7.7); NEUTROPHILS % (AUTO) 72.4 % (42-75); PRE OP HEMATOCRIT 44.5 % (42.0-52.0); PRE OP HEMOGLOBIN 14.7 g/dL (14.0-17.9); PRE OP PLATELET COUNT 174 X10'3 (140-440); RED BLOOD COUNT 4.89 X10'6 (4.70-6.10); RED CELL DISTRIBUTION WIDTH 14.7 % (11.5-14.5)
[2022-10-08 10:31] LABS: ALBUMIN 3.9 G/DL (3.4-5.0); ALBUMIN/GLOBULIN RATIO 1.3 (1.1-1.5); ALKALINE PHOSPHATASE 127 IU/L (46-116); BLOOD UREA NITROGEN 14 MG/DL (7-18); BUN/CREATININE RATIO 14.1 (5.4-32.0); CALCIUM 9.3 MG/DL (8.5-10.1); CHLORIDE 106 MMOL/L (99-107); CREATININE 0.99 MG/DL (0.60-1.10); PRE OP ALT 44 U/L (30-65); PRE OP ANION GAP 11 (8-16); PRE OP AST 26 U/L (10-37); PRE OP BILIRUB, TOTAL 0.4 MG/DL (0.0-1.0); PRE OP GLUCOSE 137 MG/DL (70-104); PRE OP SODIUM 142 MMOL/L (135-145); TOTAL CARBON DIOXIDE 25.3 MMOL/L (24-32); TOTAL PROTEIN 6.9 G/DL (6.4-8.2); eGFR 79 ML/MIN
[2022-10-08 10:50] LABS: PRE OP POTASSIUM 3.2 MMOL/L (3.4-5.1)
[2022-10-11] MEDS ORDERED: ESCI20TA39 PO (11:20)
[2022-10-11] MEDS ORDERED: METO-384 PO (11:20)
[2022-10-11] MEDS ORDERED: HYDR-3972 PO (11:20)
[2022-10-11] MEDS ORDERED: LISI40TA13 PO (11:20)
[2022-10-11] MEDS ORDERED: PANT40TA54 PO (11:20)
[2022-10-12] MEDS ORDERED: ringers solution, lacted 1,000 ML IV SCH (05:00)
[2022-10-12] MEDS ORDERED: GENTAMICIN IV ONE (05:30)
[2022-10-12] MEDS ORDERED: clindamycin-Cleocin 900mg/D5W 50 ML IV ONE (05:30)
[2022-10-12] MEDS ORDERED: famotidine 20mg tablet PO ONE (05:30)
[2022-10-12] MEDS ORDERED: NORMAL SALINE IV ONE (05:30)
[2022-10-21] MEDS ORDERED: ringers solution, lacted 1,000 ML IV SCH (05:00)
[2022-10-21] MEDS ORDERED: GENTAMICIN IV ONE (05:30)
[2022-10-21] MEDS ORDERED: NORMAL SALINE IV ONE (05:30)
[2022-10-21] MEDS ORDERED: famotidine 20mg tablet PO ONE (05:30)
[2022-10-21] MEDS ORDERED: clindamycin-Cleocin 900mg/D5W 50 ML IV ONE (05:30)
[2022-10-26] MEDS ORDERED: ringers solution, lacted 1,000 ML IV SCH (05:00)
[2022-10-26] MEDS ORDERED: famotidine 20mg tablet PO ONE (05:30)
[2022-10-26] MEDS ORDERED: GENTAMICIN IV ONE (05:30)
[2022-10-26] MEDS ORDERED: NORMAL SALINE IV ONE (05:30)
[2022-10-26] MEDS ORDERED: DOCUMENT DATE & TIME OF BETA-BLOCKER PO ONE (05:30)
[2022-10-26] MEDS ORDERED: clindamycin-Cleocin 900mg/D5W 50 ML IV ONE (05:30)
[2022-11-01] MEDS ORDERED: PANT20TA18 PO (14:01)
[2022-11-10] MEDS ORDERED: CIPR750T4 PO (14:46)
[2022-11-10] MEDS ORDERED: LOSA50TA64 PO (14:46)
[2022-11-10] MEDS ORDERED: LINE600T14 PO (14:46)
[2022-11-10] MEDS ORDERED: NOR5T PO (14:46)
[2022-11-10] MEDS ORDERED: CHLO25TA11 PO (14:46)
[2022-11-10] MEDS ORDERED: OXYC-150 PO (14:51)
== END 2022-10-08 23:59 | disposition home or self-care (01) ==
LOC: LAB 08:48 → EDSTATUS 10-26 08:30
PROVIDERS: ATTEND Surgery
DX: Z01.812 Encounter for preprocedural laboratory examination (principal); K43.2 Incisional hernia without obstruction or gangrene; Z93.3 Colostomy status
CPT/HCPCS: 36415; 80053; 85025; 86885; 86900; 86901; 87081; J1580; J3490; J7120

== ENCOUNTER 2024-03-07 08:04 | Emergency (ER) | payer MEDICARE ==
[~2024-03-07] VITALS: Ht 167.6 cm; Wt 83.0 kg
[~2024-03-07 08:04] MED LIST changes: +CHLO25TA11 PO; +CIPR750T4 PO; +ESCI20TA39 PO; +LACT1CAP65 PO; +LINE600T14 PO; -LISI2.5T14 PO; +LOSA50TA64 PO; +METO-384 PO; -METO25TA6 PO; +NOR5T PO; +ONDA-103 PO; +OXYC-150 PO
[2024-03-07] MEDS ORDERED: TERA2CAP4 PO (08:54)
[2024-03-07] MEDS ORDERED: BUPR-561 PO (08:54)
[2024-03-07] MEDS ORDERED: METO100T14 PO (08:54)
[2024-03-07 10:08] LABS: BASOPHILS # (AUTO) 0.1 X10'3 (0-0.2); BASOPHILS % (AUTO) 0.8 % (0-1); EOSINOPHILS # (AUTO) 0.2 X10'3 (0-0.9); EOSINOPHILS % (AUTO) 1.4 % (0-6); LYMPHOCYTES # (AUTO) 1.9 X10'3 (1.1-4.8); LYMPHOCYTES % (AUTO) 12.4 % (21-51); MEAN CORPUSCULAR HEMOGLOBIN 31.8 PG (27.0-31.0); MEAN CORPUSCULAR HGB CONC 33.4 g/dL (33.0-36.5); MEAN CORPUSCULAR VOLUME 95.1 FL (78-98); MEAN PLATELET VOLUME 8.2 FL (7.4-10.4); MONOCYTES # (AUTO) 1.1 X10'3 (0-0.9); MONOCYTES % (AUTO) 7.3 % (2-12); NEUTROPHILS # (AUTO) 11.9 X10'3 (1.8-7.7); NEUTROPHILS % (AUTO) 78.1 % (42-75); PLATELET COUNT 334 X10'3 (140-440); RED BLOOD COUNT 5.36 X10'6 (4.70-6.10); RED CELL DISTRIBUTION WIDTH 13.5 % (11.5-14.5); WHITE BLOOD COUNT 15.3 X10'3 (4.5-11.0)
[2024-03-07 10:35] LABS: ALBUMIN 3.4 G/DL (3.4-5.0); ANION GAP 11 (8-16); BLOOD UREA NITROGEN 12 MG/DL (7-18); BUN/CREATININE RATIO 9.4 (10.0-20.0); CALCIUM 8.9 MG/DL (8.5-10.1); CHLORIDE 104 MMOL/L (99-107); CREATININE 1.28 MG/DL (0.60-1.10); GLUCOSE 108 MG/DL (70-104); SODIUM 140 MMOL/L (135-145); TOTAL CARBON DIOXIDE 25.2 MMOL/L (24-32); eCRCL 59 ML/MIN; eGFR 58 ML/MIN
[2024-03-07 10:42] LABS: POTASSIUM 2.8 MMOL/L (3.5-5.1)
[2024-03-07] MEDS: normal saline 1000ML IV soln IVB ONE (13:23)
[2024-03-07] MEDS: morphine 4 MG/ML inj SYRINge IV ONE (13:23)
[2024-03-07] MEDS: ondansetron/PF 4mg/2ml inj IV ONE (13:24)
[2024-03-07] MEDS: vancomycin/NS 1 GM ADD-VANTAGE 250 ML IV ONE (13:25)
[2024-03-07] MEDS ORDERED: iohexol 300mg/ml 100ml inj. ONE (13:26)
[2024-03-07 14:01] VITALS: TEMP 98.2
[2024-03-07 14:38] LABS: BILIRUBIN,URINE NEGATIVE (Neg); CLARITY,URINE CLEAR (Clear); COLOR,URINE YELLOW (Yellow); GLUCOSE, URINE NEGATIVE (Neg); KETONES,URINE NEGATIVE (Neg); LEUKOCYTE ESTERASE ,URINE NEGATIVE (Neg); NITRITES, URINE NEGATIVE (Neg); OCCULT BLOOD,URINE SMALL (Neg); PROTEIN,URINE TRACE mg/dl (Neg); UROBILINOGEN,URINE 0.2 E.U/dL (0.2-1.0)
[2024-03-07 14:40] LABS: UA COLLECTION TYPE OTHER
[2024-03-07 14:44] LABS: BACTERIA,URINE 1+ /HPF (Neg); SQUAMOUS EPITHELIAL CELL,UR FEW /LPF (FEW)
[2024-03-07 14:45] LABS: MUCUS STRANDS MODERATE /LPF (Neg)
[2024-03-07] MEDS ORDERED: magnesium sulf-water 2g/50mL 50 ML IV PRN (14:55)
[2024-03-07] MEDS ORDERED: magnesium Cl slow-release 64mg tablet PO PRN (14:55)
[2024-03-07] MEDS ORDERED: potassium Cl 40MEQ/1/2NS 520ml 520 ML IV PRN (14:55)
[2024-03-07] MEDS ORDERED: magnesium sulf-water 4G/100mL 100 ML IV PRN (14:55)
[2024-03-07] MEDS ORDERED: potassium Cl 20 mEq SR tablet PO PRN ×2 (14:55)
[2024-03-07] MEDS ORDERED: metoprolol succinate 25mg (24-HOUR) SR. Tablet PO SCH (15:05)
[2024-03-07] MEDS: hydrALAZINE 20mg/ml inj. IV ONE (15:43)
[2024-03-07] MEDS: LIDOcaine 1% W/epiNEPHrine 1:100,000 20ml vial SQ ONE (15:48)
[2024-03-07] MEDS ORDERED: piperacillin/tazo 3.375gm/50ml 50 ML IV SCH (16:00)
[2024-03-07] MEDS ORDERED: CEPH-585 PO (16:58)
[2024-03-07] MEDS ORDERED: SULF1TAB48 PO (16:58)
[2024-03-07] MEDS ORDERED: POTA-205 PO (16:59)
[2024-03-07] MEDS: sulfamethoxazole/trimethoprim DS (800/160mg) tablet PO ONE (17:03)
[2024-03-07] MEDS: cephalexin 500mg capsule PO ONE (17:04)
[2024-03-07] MEDS: metoprolol succinate 25mg (24-HOUR) SR. Tablet PO ONE (17:04)
[2024-03-07] MEDS: potassium Cl 20 mEq SR tablet PO ONE (17:04)
[2024-03-07 17:51] VITALS: BP 170/98; PULSE 93; RESP 15; O2SAT 97
[2024-03-07] MEDS ORDERED: K and/or MAG REPLACEMENT MC SCH (20:00)
== END 2024-03-07 17:53 | disposition home or self-care (01) ==
LOC: ER 08:04
DX: L03.311 Cellulitis of abdominal wall (principal); I10 Essential (primary) hypertension; E78.00 Pure hypercholesterolemia, unspecified; E11.9 Type 2 diabetes mellitus without complications; F17.200 Nicotine dependence, unspecified, uncomplicated; Z88.0 Allergy status to penicillin; Z88.8 Allergy status to other drugs, medicaments and biological substances; Z79.82 Long term (current) use of aspirin; Z79.2 Long term (current) use of antibiotics; Z79.899 Other long term (current) drug therapy
CPT/HCPCS: 10060; 36415; 71045; 74177; 80048; 81001; 83605; 84145; 85025; 87040; 87088; 96365; 96366; 96375; 99285; A6402; J0360; J2270; J2405; J3370; J7030; Q9967; A6449

== ENCOUNTER 2024-04-26 14:22 | Emergency (ER) | payer MEDICARE ==
[~2024-04-26] VITALS: Ht 170.2 cm; Wt 73.0 kg
[~2024-04-26 14:22] MED LIST changes: -ALBU18HF2 PO; +BUPR-561 PO; +CEPH-585 PO; -CHLO25TA11 PO; -CIPR750T4 PO; -ESCI20TA39 PO; -HYDR-3972 PO; -LINE600T14 PO; -LOSA50TA64 PO; -METO-384 PO; +METO100T14 PO; -NOR5T PO; -OXYC-150 PO; -PANT20TA18 PO; +POTA-205 PO
[2024-04-26 16:20] LABS: BASOPHILS # (AUTO) 0.1 X10'3 (0-0.2); BASOPHILS % (AUTO) 0.9 % (0-1); EOSINOPHILS # (AUTO) 0.4 X10'3 (0-0.9); EOSINOPHILS % (AUTO) 2.5 % (0-6); HEMATOCRIT 42.2 % (42.0-52.0); HEMOGLOBIN 13.9 g/dl (14.0-17.9); LYMPHOCYTES # (AUTO) 2.1 X10'3 (1.1-4.8); LYMPHOCYTES % (AUTO) 14.2 % (21-51); MEAN CORPUSCULAR HEMOGLOBIN 31.7 PG (27.0-31.0); MEAN CORPUSCULAR HGB CONC 32.8 g/dL (33.0-36.5); MEAN CORPUSCULAR VOLUME 96.5 FL (78-98); MEAN PLATELET VOLUME 8.5 FL (7.4-10.4); MONOCYTES # (AUTO) 1.1 X10'3 (0-0.9); MONOCYTES % (AUTO) 7.6 % (2-12); NEUTROPHILS % (AUTO) 74.8 % (42-75); PLATELET COUNT 277 X10'3 (140-440); RED BLOOD COUNT 4.38 X10'6 (4.70-6.10); RED CELL DISTRIBUTION WIDTH 14.4 % (11.5-14.5); WHITE BLOOD COUNT 14.7 X10'3 (4.5-11.0)
[2024-04-26 16:27] LABS: BILIRUBIN,URINE NEGATIVE (Neg); CLARITY,URINE CLOUDY (Clear); COLOR,URINE YELLOW (Yellow); GLUCOSE, URINE NEGATIVE (Neg); KETONES,URINE NEGATIVE (Neg); LEUKOCYTE ESTERASE ,URINE NEGATIVE (Neg); NITRITES, URINE NEGATIVE (Neg); OCCULT BLOOD,URINE LARGE (Neg); PROTEIN,URINE 30 mg/dl (Neg)
[2024-04-26 16:28] LABS: UA COLLECTION TYPE CLN CATCH MIDSTREAM
[2024-04-26] MEDS ORDERED: iohexol 300mg/ml 100ml inj. ONE (16:28)
[2024-04-26 16:34] LABS: MUCUS STRANDS MODERATE /LPF (Neg); SQUAMOUS EPITHELIAL CELL,UR FEW /LPF (FEW)
[2024-04-26 16:35] LABS: RBC,URINE TNTC /HPF (0-2)
[2024-04-26 16:36] LABS: BACTERIA,URINE 1+ /HPF (Neg)
[2024-04-26 17:19] LABS: ALANINE AMINOTRANSFERASE 20 U/L (12-78); ALBUMIN 3.2 G/DL (3.4-5.0); ALKALINE PHOSPHATASE 121 IU/L (46-116); ANION GAP 8 (8-16); ASPARTATE AMINO TRANSFERASE 15 U/L (10-37); BILIRUBIN,TOTAL 0.3 MG/DL (0.1-1.0); BLOOD UREA NITROGEN 11 MG/DL (7-18); BUN/CREATININE RATIO 9.9 (10.0-20.0); CALCIUM 8.5 MG/DL (8.5-10.1); CHLORIDE 111 MMOL/L (99-107); CREATININE 1.11 MG/DL (0.60-1.10); GLUCOSE 97 MG/DL (70-104); MAGNESIUM 1.7 MG/DL (1.5-2.4); POTASSIUM 3.4 MMOL/L (3.5-5.1); SODIUM 141 MMOL/L (135-145); TOTAL CARBON DIOXIDE 21.9 MMOL/L (24-32); TOTAL PROTEIN 6.4 G/DL (6.4-8.2); eCRCL 69 ML/MIN; eGFR 69 ML/MIN
[2024-04-26] MEDS ORDERED: CIPR-259 PO (18:17)
[2024-04-26] MEDS ORDERED: LINE600T14 PO (18:17)
[2024-04-26 18:20] VITALS: PULSE 66
[2024-04-26 19:25] VITALS: BP 162/99; RESP 16; TEMP 97.4; O2SAT 99
== END 2024-04-26 19:37 | disposition home or self-care (01) ==
LOC: ER 14:22
DX: S31.109A Unspecified open wound of abdominal wall, unspecified quadrant without penetration into peritoneal cavity, initial encounter (principal); E78.00 Pure hypercholesterolemia, unspecified; I10 Essential (primary) hypertension; E11.9 Type 2 diabetes mellitus without complications; F12.90 Cannabis use, unspecified, uncomplicated; Z88.0 Allergy status to penicillin; Z88.8 Allergy status to other drugs, medicaments and biological substances; Z79.82 Long term (current) use of aspirin; Z79.2 Long term (current) use of antibiotics; Z79.899 Other long term (current) drug therapy; Z90.49 Acquired absence of other specified parts of digestive tract; X58.XXXA Exposure to other specified factors, initial encounter; Y93.89 Activity, other specified; Y92.89 Other specified places as the place of occurrence of the external cause; Y99.8 Other external cause status
CPT/HCPCS: 36415; 74177; 80053; 81001; 83605; 83735; 84145; 85025; 87040; 87088; 99285; Q9967

== ENCOUNTER 2024-07-20 08:07 | Inpatient (IN) | payer MEDICARE ==
[~2024-07-20] VITALS: Ht 167.6 cm; Wt 76.4 kg
[~2024-07-20 08:07] MED LIST changes: +LINE600T14 PO
[2024-07-20 08:54] LABS: BASOPHILS # (AUTO) 0.1 X10'3 (0-0.2); BASOPHILS % (AUTO) 0.7 % (0-1); EOSINOPHILS # (AUTO) 0.1 X10'3 (0-0.9); EOSINOPHILS % (AUTO) 0.5 % (0-6); HEMATOCRIT 52.6 % (42.0-52.0); HEMOGLOBIN 17.7 g/dl (14.0-17.9); LYMPHOCYTES # (AUTO) 1.5 X10'3 (1.1-4.8); LYMPHOCYTES % (AUTO) 11.6 % (21-51); MEAN CORPUSCULAR HEMOGLOBIN 32.1 PG (27.0-31.0); MEAN CORPUSCULAR HGB CONC 33.6 g/dL (33.0-36.5); MEAN CORPUSCULAR VOLUME 95.5 FL (78-98); MEAN PLATELET VOLUME 8.5 FL (7.4-10.4); MONOCYTES # (AUTO) 0.7 X10'3 (0-0.9); MONOCYTES % (AUTO) 5.9 % (2-12); NEUTROPHILS # (AUTO) 10.3 X10'3 (1.8-7.7); NEUTROPHILS % (AUTO) 81.3 % (42-75); PLATELET COUNT 349 X10'3 (140-440); RED BLOOD COUNT 5.51 X10'6 (4.70-6.10); RED CELL DISTRIBUTION WIDTH 13.5 % (11.5-14.5); WHITE BLOOD COUNT 12.7 X10'3 (4.5-11.0)
[2024-07-20 09:06] LABS: ALBUMIN 4.4 G/DL (3.4-5.0); ANION GAP 18 (8-16); BLOOD UREA NITROGEN 14 MG/DL (7-18); BUN/CREATININE RATIO 7.9 (10.0-20.0); CALCIUM 9.3 MG/DL (8.5-10.1); CHLORIDE 98 MMOL/L (99-107); CREATININE 1.77 MG/DL (0.60-1.10); GLUCOSE 113 MG/DL (70-104); SODIUM 136 MMOL/L (135-145); TOTAL CARBON DIOXIDE 19.8 MMOL/L (24-32); eCRCL 42 ML/MIN; eGFR 40 ML/MIN
[2024-07-20 09:08] LABS: POTASSIUM 2.9 MMOL/L (3.5-5.1)
[2024-07-20] MEDS ORDERED: POTASSIUM BICARB 20meq eff tab 20 MEQ TABLET.EFF PO SCH (09:15)
[2024-07-20] MEDS: POTASSIUM BICARB 20meq eff tab 20 MEQ TABLET.EFF PO ONE (10:03)
[2024-07-20] MEDS: normal saline 1000ML IV soln IVB ONE (11:18)
[2024-07-20 11:50] LABS: BILIRUBIN,URINE MODERATE (Neg); COLOR,URINE BROWN (Yellow); GLUCOSE, URINE NEGATIVE (Neg); KETONES,URINE 40 mg/dl (Neg); LEUKOCYTE ESTERASE ,URINE NEGATIVE (Neg); NITRITES, URINE NEGATIVE (Neg); OCCULT BLOOD,URINE LARGE (Neg); PH,URINE 6.5 (4.8-8.0); PROTEIN,URINE >=300 mg/dl (Neg)
[2024-07-20 11:51] LABS: CLARITY,URINE Cloudy (Clear); UA COLLECTION TYPE URINAL
[2024-07-20] MEDS ORDERED: ALBU18HF2 (11:51)
[2024-07-20] MEDS ORDERED: ZOLPIDEM (11:51)
[2024-07-20] MEDS ORDERED: LISI40TA13 (11:51)
[2024-07-20] MEDS ORDERED: OMEP40CA21 (11:51)
[2024-07-20] MEDS ORDERED: AMLO-708 (11:51)
[2024-07-20 11:58] LABS: BACTERIA,URINE FEW /HPF (Neg); MUCUS STRANDS NONE SEEN /LPF (Neg); RBC,URINE 50-100 /HPF (0-2); SQUAMOUS EPITHELIAL CELL,UR FEW /LPF (FEW); WBC,URINE 0-4 /HPF (0-4)
[2024-07-20] MEDS ORDERED: dextrose 50%-water 50ml dispensing syringe IV PRN ×2 (12:10)
[2024-07-20] MEDS ORDERED: glucagon, human recombinant 1mg kit SUBCUT PRN (12:10)
[2024-07-20] MEDS ORDERED: magnesium sulf-water 2g/50mL 50 ML IV PRN (12:10)
[2024-07-20] MEDS ORDERED: potassium Cl 40MEQ/1/2NS 520ml 520 ML IV PRN (12:10)
[2024-07-20] MEDS ORDERED: mag hydrox/Alum hydrox/simeth 30ml oral suspension PO PRN (12:10)
[2024-07-20] MEDS ORDERED: acetaminophen 325mg tablet PO PRN (12:10)
[2024-07-20] MEDS ORDERED: ondansetron/PF 4mg/2ml inj IV PRN (12:10)
[2024-07-20] MEDS ORDERED: magnesium sulf-water 4G/100mL 100 ML IV PRN (12:10)
[2024-07-20] MEDS ORDERED: DEXTROSE 15 GM of carb/4 tabs (each vial/BOTTLE has 4 tablets) PO PRN ×2 (12:10)
[2024-07-20] MEDS: CefTRIAXone/D5W-Rocephin 1gm 50 ML IV ONE (12:44)
[2024-07-20] MEDS: normal saline 1000ml 1,000 ML IV SCH (12:44)
[2024-07-20] MEDS ORDERED: HYDROcodone/acetaminophen 5mg/325mg tablet PO PRN (13:15)
[2024-07-20] MEDS ORDERED: HYDROmorphone 1 mg/ml syringe IV PRN (13:15)
[2024-07-20] MEDS: HYDROmorphone inj. 0.5 MG/0.5 ML DISP.SYRIN IV PRN (13:43)
[2024-07-20 15:00] VITALS: BP 153/97; PULSE 94; RESP 16; TEMP 96.9; O2SAT 98
[2024-07-20] MEDS: HYDROcodone/acetaminophen 10/325mg tab PO PRN (16:50)
[2024-07-20] MEDS ORDERED: INSULIN LISPRO 100 UNIT/ML INSULN.PEN MULTI-DOSE SQ SCH (17:00)
[2024-07-20 20:00] VITALS: RESP 15; O2SAT 97
[2024-07-20 20:30] VITALS: BP 162/85; PULSE 92; RESP 15; TEMP 98.3; O2SAT 97
[2024-07-20] MEDS: heparin, porcine 5000 units/ml vial SQ SCH (20:38)
[2024-07-20] MEDS: potassium Cl 20 mEq SR tablet PO PRN (20:40)
[2024-07-20] MEDS: docusate sod 100mg capsule PO SCH (20:41)
[2024-07-20] MEDS: K and/or MAG REPLACEMENT MC SCH (20:54)
[2024-07-20 21:25] VITALS: BP 168/92; PULSE 86; RESP 16; TEMP 98.3; O2SAT 97
[2024-07-20 21:40] VITALS: BP 180/94
[2024-07-20] MEDS: amLODIPine 5mg tablet PO ONE (22:14)
[2024-07-21 05:47] LABS: BASOPHILS # (AUTO) 0.1 X10'3 (0-0.2); BASOPHILS % (AUTO) 0.7 % (0-1); EOSINOPHILS # (AUTO) 0.1 X10'3 (0-0.9); EOSINOPHILS % (AUTO) 0.6 % (0-6); HEMATOCRIT 44.9 % (42.0-52.0); HEMOGLOBIN 15.2 g/dl (14.0-17.9); LYMPHOCYTES # (AUTO) 1.5 X10'3 (1.1-4.8); LYMPHOCYTES % (AUTO) 16.3 % (21-51); MEAN CORPUSCULAR HEMOGLOBIN 32.2 PG (27.0-31.0); MEAN CORPUSCULAR HGB CONC 33.8 g/dL (33.0-36.5); MEAN CORPUSCULAR VOLUME 95.3 FL (78-98); MEAN PLATELET VOLUME 8.7 FL (7.4-10.4); MONOCYTES # (AUTO) 0.7 X10'3 (0-0.9); MONOCYTES % (AUTO) 7.8 % (2-12); NEUTROPHILS # (AUTO) 6.9 X10'3 (1.8-7.7); NEUTROPHILS % (AUTO) 74.6 % (42-75); PLATELET COUNT 279 X10'3 (140-440); RED BLOOD COUNT 4.71 X10'6 (4.70-6.10); RED CELL DISTRIBUTION WIDTH 13.4 % (11.5-14.5); WHITE BLOOD COUNT 9.2 X10'3 (4.5-11.0)
[2024-07-21 06:00] VITALS: BP 179/94; PULSE 87; RESP 14; TEMP 98; O2SAT 97
[2024-07-21 06:01] LABS: ALANINE AMINOTRANSFERASE 14 U/L (12-78); ALBUMIN 3.3 G/DL (3.4-5.0); ALKALINE PHOSPHATASE 122 IU/L (46-116); ANION GAP 7 (8-16); ASPARTATE AMINO TRANSFERASE 23 U/L (10-37); BILIRUBIN,TOTAL 0.5 MG/DL (0.1-1.0); BLOOD UREA NITROGEN 11 MG/DL (7-18); BUN/CREATININE RATIO 9.9 (10.0-20.0); CALCIUM 8.2 MG/DL (8.5-10.1); CHLORIDE 105 MMOL/L (99-107); CREATININE 1.11 MG/DL (0.60-1.10); GLUCOSE 101 MG/DL (70-104); POTASSIUM 3.8 MMOL/L (3.5-5.1); SODIUM 136 MMOL/L (135-145); TOTAL CARBON DIOXIDE 24.5 MMOL/L (24-32); TOTAL PROTEIN 6.7 G/DL (6.4-8.2); eCRCL 67 ML/MIN; eGFR 69 ML/MIN
[2024-07-21] MEDS: CefTRIAXone/D5W-Rocephin 1gm 50 ML IV SCH (08:28)
[2024-07-21] MEDS: aspirin 81mg, enteric-coated 1 TAB TABLET.DR PO SCH (08:29)
[2024-07-21] MEDS: BUPROPION HCL 150MG XL 24 HR 150 MG TAB PO SCH (08:29)
[2024-07-21] MEDS: metoprolol tartrate 50mg tablet PO SCH (08:29)
[2024-07-21] MEDS: atorvastatin 20mg tablet PO SCH (08:29)
[2024-07-21 08:30] VITALS: RESP 18; O2SAT 98
[2024-07-21] MEDS: Terazosin 1mg capsule PO SCH (08:53)
[2024-07-21 10:00] VITALS: BP 144/82; PULSE 65; RESP 16; TEMP 97.6; O2SAT 97
[2024-07-21] MEDS ORDERED: HYDROmorphone 2mg tablet PO PRN (10:50)
[2024-07-21] MEDS ORDERED: HYDROmorphone inj. 0.5 MG/0.5 ML DISP.SYRIN IV PRN (10:50)
[2024-07-21] MEDS ORDERED: HYDROmorphone 1mg tablet (1/2 of 2mg tablet) PO PRN (11:05)
[2024-07-21] MEDS: lisinopril 20mg tablet PO SCH (16:45)
[2024-07-21 18:00] VITALS: BP 176/88; PULSE 62; RESP 20; TEMP 97.8; O2SAT 97
[2024-07-21 20:00] VITALS: RESP 20; O2SAT 97
[2024-07-21] MEDS: amLODIPine 5mg tablet PO ONE (20:08)
[2024-07-21] MEDS: polyethylene glycol 3350 17gm powd pack PO SCH (20:09)
[2024-07-21] MEDS: tamsulosin 0.4mg capsule PO SCH (20:09)
[2024-07-21 22:00] VITALS: BP 166/88; PULSE 68; RESP 18; TEMP 97.7; O2SAT 97
[2024-07-22 02:52] LABS: BASOPHILS % (AUTO) 0.5 % (0-1); EOSINOPHILS # (AUTO) 0.1 X10'3 (0-0.9); EOSINOPHILS % (AUTO) 1.1 % (0-6); HEMATOCRIT 40.6 % (42.0-52.0); HEMOGLOBIN 13.5 g/dl (14.0-17.9); LYMPHOCYTES # (AUTO) 1.8 X10'3 (1.1-4.8); LYMPHOCYTES % (AUTO) 19.8 % (21-51); MEAN CORPUSCULAR HEMOGLOBIN 31.8 PG (27.0-31.0); MEAN CORPUSCULAR HGB CONC 33.2 g/dL (33.0-36.5); MEAN CORPUSCULAR VOLUME 95.7 FL (78-98); MEAN PLATELET VOLUME 8.3 FL (7.4-10.4); MONOCYTES # (AUTO) 0.7 X10'3 (0-0.9); NEUTROPHILS # (AUTO) 6.4 X10'3 (1.8-7.7); NEUTROPHILS % (AUTO) 70.6 % (42-75); PLATELET COUNT 248 X10'3 (140-440); RED BLOOD COUNT 4.24 X10'6 (4.70-6.10); RED CELL DISTRIBUTION WIDTH 13.7 % (11.5-14.5); WHITE BLOOD COUNT 9.1 X10'3 (4.5-11.0)
[2024-07-22 03:08] LABS: ALANINE AMINOTRANSFERASE 14 U/L (12-78); ALKALINE PHOSPHATASE 102 IU/L (46-116); ANION GAP 9 (8-16); ASPARTATE AMINO TRANSFERASE 16 U/L (10-37); BILIRUBIN,TOTAL 0.4 MG/DL (0.1-1.0); BLOOD UREA NITROGEN 10 MG/DL (7-18); BUN/CREATININE RATIO 10.8 (10.0-20.0); CALCIUM 8.1 MG/DL (8.5-10.1); CHLORIDE 103 MMOL/L (99-107); CREATININE 0.93 MG/DL (0.60-1.10); GLUCOSE 100 MG/DL (70-104); POTASSIUM 3.4 MMOL/L (3.5-5.1); SODIUM 137 MMOL/L (135-145); TOTAL CARBON DIOXIDE 25.3 MMOL/L (24-32); eCRCL 80 ML/MIN; eGFR 84 ML/MIN
[2024-07-22 06:00] VITALS: BP 159/75; PULSE 68; RESP 15; TEMP 97; O2SAT 98
[2024-07-22 08:37] VITALS: BP_SYST 159; PULSE 68
[2024-07-22] MEDS: potassium Cl 20 mEq SR tablet PO PRN (08:38)
[2024-07-22 08:39] VITALS: RESP 16
[2024-07-22] MEDS ORDERED: ACET-1008 PO (09:06)
[2024-07-22] MEDS ORDERED: tamsulosin capsule PO (09:09)
[2024-07-22] MEDS ORDERED: HYDR-3972 PO (09:09)
[2024-07-22] MEDS ORDERED: POLY17PO10 PO (09:12)
== END 2024-07-22 10:54 | disposition home or self-care (01) | DRG 683 ==
LOC: ER 08:08 → ED HOLD 12:18 → SUR 3N 14:55
PROVIDERS: ADMIT Family Medicine; ATTEND Family Medicine
DX: N17.0 Acute kidney failure with tubular necrosis (principal); R65.10 Systemic inflammatory response syndrome (SIRS) of non-infectious origin without acute organ dysfunction; N13.2 Hydronephrosis with renal and ureteral calculous obstruction; F17.210 Nicotine dependence, cigarettes, uncomplicated; I10 Essential (primary) hypertension; E87.6 Hypokalemia; E78.00 Pure hypercholesterolemia, unspecified; F51.04 Psychophysiologic insomnia; S31.109A Unspecified open wound of abdominal wall, unspecified quadrant without penetration into peritoneal cavity, initial encounter; X58.XXXA Exposure to other specified factors, initial encounter; L98.499 Non-pressure chronic ulcer of skin of other sites with unspecified severity; E11.622 Type 2 diabetes mellitus with other skin ulcer; Z79.899 Other long term (current) drug therapy; Y93.89 Activity, other specified; Y92.89 Other specified places as the place of occurrence of the external cause; Y99.8 Other external cause status; Z88.0 Allergy status to penicillin; Z87.820 Personal history of traumatic brain injury; Z93.3 Colostomy status; Z83.3 Family history of diabetes mellitus; Z87.442 Personal history of urinary calculi; Z88.8 Allergy status to other drugs, medicaments and biological substances
CPT/HCPCS: 36415; 71045; 74176; 80048; 80053; 81001; 83036; 83605; 84145; 85025; 85651; 87040; 87081; 99285; A4649; A6258; A6449; G0378; J0696; J1171; J1644; J1815; J7030